=== PATIENT | male | born 1990 | race Caucasian/White ===

== ENCOUNTER 2017-10-23 10:39 | Emergency (ER) | payer OTHER ==
[~2017-10-23] VITALS: Ht 177.8 cm; Wt 90.7 kg
[~2017-10-23 10:39] MED LIST: CIPROFLOXACIN500 M1 PO; CLEOCIN HCL150 MG PO; DOXYCYCLINE 10100 MG PO; KEFLEX500 MG PO; LEVAQUIN 500 M500 MG PO; NOHOMEMEDICATIONS; NORCO 5-325 TA1 EACH PO
[2017-10-23] MEDS ORDERED: DOXYCYCLINE 10100 MG PO (11:11)
[2017-10-23] MEDS ORDERED: HYDROXYZINE HCL25 M1 PO (11:11)
[2017-10-23 11:18] VITALS: BP 130/78
== END 2017-10-23 11:15 | disposition home or self-care (01) ==
LOC: M.ERS 10:39
DX: B35.0 Tinea barbae and tinea capitis (principal); F41.9 Anxiety disorder, unspecified; Z88.2 Allergy status to sulfonamides; Z88.8 Allergy status to other drugs, medicaments and biological substances